=== PATIENT | male | born 1950 | race Caucasian/White ===

== ENCOUNTER 2020-10-23 13:32 | Outpatient (CLI) | payer OTHER, MEDICARE, SELFPAY | END 2020-10-23 13:33 | disposition home or self-care (01) | LOC: ANHCOVIDVC 13:32 | PROVIDERS: PCP Family Medicine Adolescent Medicine; Visit Provider Family Medicine Adolescent Medicine | DX: Z23 Encounter for immunization (principal) | CPT/HCPCS: 0001A; 91300 ==

== ENCOUNTER 2020-11-13 13:32 | Outpatient (CLI) | payer OTHER, MEDICARE, SELFPAY | END 2020-11-13 13:33 | disposition home or self-care (01) | LOC: ANHCOVIDVC 13:32 | PROVIDERS: PCP Family Medicine Adolescent Medicine; Visit Provider Family Medicine Adolescent Medicine | DX: Z23 Encounter for immunization (principal) | CPT/HCPCS: 0002A; 91300 ==

== ENCOUNTER → 2021-02-01 08:15 | Outpatient (CLI) | payer OTHER, SELFPAY ==
--- NOTE | ~2021-02-01 | CT_ITS ---
EXAMINATION: CT abdomen pelvis wo con EXAM DATE: 02/01/2021 08:42 INDICATION: Right low back, flank pain, kidney stone evaluation. Abnormal urinalysis. TECHNIQUE: Spiral CT of the abdomen and pelvis was performed without contrast. Axial, coronal and sag ittal images were reviewed. The dose-length product (DLP) for this examination was 951.65 mGy-cm. T he exposure was tailored according to patient size (auto mA exposure control), and iterative reconstr uction (ASIR) was used as additional dose reduction technique. There is no prior study for compariso n. FINDINGS: There is no nephrolithiasis or hydronephrosis. There is mild prostatomegaly. The bladder is unremarkable. The liver, spleen, adrenal glands and pancreas are unremarkable. Gallbladder is u nremarkable. No biliary obstruction. There is no retroperitoneal or pelvic lymphadenopathy. Small left inguinal fat-containing hernia. The appendix is normal. There is small sliding gastroesophageal hiatal hernia. There is expected am ount of colonic stool. No free intraperitoneal gas. The heart is normal in size. There are no pe ricardial or pleural effusions. Numerous punctate right lower lobe tree-in-bud distribution nodules, likely sequela from prior infectious process. Advanced lower lumbar facet arthropathy. There are no osteoblastic or osteolytic lesions identified. IMPRESSION: 1. No nephrolithiasis, hydronephrosis or acute intra-abdominal findings. 2. Mild prostatomegaly. 3. Small hiatal hernia. Reviewed, dictated and finalized at location B.
== END ==
PROVIDERS: PCP Family Medicine Adolescent Medicine; Visit Provider Physician Assistant
DX: M54.9 Dorsalgia, unspecified (principal); N40.0 Benign prostatic hyperplasia without lower urinary tract symptoms; K44.9 Diaphragmatic hernia without obstruction or gangrene
CPT/HCPCS: 74176

== ENCOUNTER → 2021-02-25 13:05 | Outpatient (CLI) | payer OTHER, SELFPAY ==
--- NOTE | ~2021-02-25 | MR_ITS ---
EXAMINATION: MR lumbar spine wo [facility] EXAM DATE: 02/25/2021 13:58 INDICATION: Lumbar radiculopathy. Low back, right leg and hip pain. TECHNIQUE: Multi-sequential, multiplanar MR images of the lumbar spine were obtained without contrast . Sagittal T1, T2, T2 fat saturation images. Axial T2 weighted images. There is no prior study for comparison. FINDINGS: There is 3 mm anterolisthesis L3 on L4, 4 mm anterolisthesis L4 on L5 with moderate loss of this disc height. Congenitally narrow L5-S1 disc height, a transitional segment. Mild disc disease a t the upper lumbar levels. The conus medullaris terminates at the T12-L1 level and has normal signal intensity and morphology. There are no suspicious marrow signal abnormalities. Level by level evaluation: T11-12: There is a mild to moderate diffuse disc bulge. Facet arthropathy: Mild. Neural foraminal stenosis: No stenosis. Central canal stenosis: Mild. T12-L1: There is a mild to moderate diffuse disc bulge. Facet arthropathy: Mild. Neural foraminal stenosis: No stenosis. Central canal stenosis: Minimal. L1-L2: There is a minimal diffuse disc bulge. Facet arthropathy: Mild to moderate. Neural foraminal stenosis: No stenosis. Central canal stenosis: No stenosis. L2-L3: There is a moderate diffuse disc bulge. Facet arthropathy: Moderate . Ligamentum flavum enlargement. Neural foraminal stenosis: Mild to moderate left, mild right. Central canal stenosis: Mild to moderate. L3-L4: There is a moderate to large diffuse disc bulge. Facet arthropathy: Severe. Neural foraminal stenosis: Moderate left, mild to moderate right. Central canal stenosis: Moderate to severe. L4-L5: There is a moderate diffuse disc bulge. Facet arthropathy: Severe right, moderate left. Neural foraminal stenosis: Moderate to severe right, mild to moderate left. Central canal stenosis: Moderate. L5-S1: There is a congenitally narrowed disc space. Facet arthropathy: Mild. Neural foraminal stenosis: Mild bilateral. Central canal stenosis: No stenosis. IMPRESSION: 1. Transitional L5 segment. 2. Grade 1 anterolisthesis L3 on L4 and L4 on L5. 3. L3-4 moderate to severe central canal stenosis. 4. L4-5 moderate to severe right neural foraminal stenosis. Reviewed, dictated and finalized at location A.
== END ==
PROVIDERS: PCP Family Medicine Adolescent Medicine; Visit Provider Nurse Practitioner Family
DX: M54.16 Radiculopathy, lumbar region (principal)
CPT/HCPCS: 72148

== ENCOUNTER → 2021-03-29 11:51 | Outpatient (CLI) | payer OTHER, SELFPAY ==
--- NOTE | ~2021-03-29 | US_ITS ---
EXAMINATION: US renal BI DATE: 03/29/2021 12:10 INDICATION: Abnormal results of kidney function tests. TECHNIQUE: Multiple ultrasound grayscale images of the kidneys were obtained. COMPARISON: None. FINDINGS: The right kidney measures 10.1 x 5.4 x 4.7 cm. The left kidney measures 10.9 x 6.1 x 5.3 cm. The kidn eys demonstrate normal parenchymal echogenicity. There is a 1.1 cm cyst in right kidney. There is no hydronephrosis. The bladder is normal. IMPRESSION: 1. Normal kidney sizes. No hydronephrosis. Reviewed, dictated and finalized at location A.
== END ==
PROVIDERS: PCP Family Medicine Adolescent Medicine; Visit Provider Internal Medicine Nephrology
DX: R94.4 Abnormal results of kidney function studies (principal)
CPT/HCPCS: 76775

== ENCOUNTER 2021-04-10 07:28 | Outpatient (CLI) | payer OTHER, SELFPAY ==
[2021-04-05 12:43] VITALS: BMI 32.8
[2021-04-10] VITALS (9 sets, daily range): BP systolic 110–132; BP diastolic 73–79; PULSE 62–71; RESP 16–18; TEMP 36.5; O2SAT 97–99
--- NOTE | ~2021-04-10 | US_ITS ---
EXAMINATION: US biopsy renal DATE: 04/10/2021 09:59 INDICATION: Acute kidney failure. TECHNIQUE: The procedure including the risks, benefits, and alternatives was discussed with the patie nt. Risks discussed included bleeding and infection. The patient understood the risks and agreed to p roceed. A timeout was performed to verify the patient's name, date of , and procedure to be p erformed. The skin overlying the left kidney was prepped and draped in usual sterile fashion. Anest hetic was administered with 1% lidocaine subcutaneously. An 18 gauge core biopsy needle was then use d to obtain 5 core biopsy specimens under continuous sonographic guidance. The entry site was cleaned and dressed. There were no immediate complications. FINDINGS: Ultrasound images demonstrate the needle in the kidney. IMPRESSION: 1. Ultrasound-guided random left kidney core needle biopsy. Reviewed, dictated and finalized at location A.
[2021-04-10 07:58] LABS: Hematocrit 35.2 % (42.0-52.0); Hemoglobin 11.5 g/dL (14.0-18.0); Mean Corpuscular HGB Conc 32.7 g/dl (32-36); Mean Corpuscular Hemoglobin 28.9 pg (26-34); Mean Corpuscular Volume 88.4 fl (80-100); Mean Platelet Volume 9.4 fl (7.4-10.4); Platelet Count Result 345 k/mm3 (150-375); Red Blood Count 3.98 M/mm3 (4.6-6.20); Red Cell Distribution Width 13.3 % (11.5-14.5); White Blood Count 8.5 K/mm3 (4.5-10.0)
[2021-04-10 08:05] LABS: Prothrombin Time 12.9 Seconds (11.1-14.7)
== END 2021-04-10 13:55 | disposition home or self-care (01) ==
PROVIDERS: Radiology Diagnostic Radiology; PCP Family Medicine Adolescent Medicine; Visit Provider Internal Medicine Nephrology
DX: N17.9 Acute kidney failure, unspecified (principal)
CPT/HCPCS: 36415; 50200; 76942; 85027; 85610; 88300; 88305; 88313; 88329; 88346; 88348; 88350

== ENCOUNTER 2021-05-21 02:30 | Day surgery (SDC) | payer OTHER, SELFPAY ==
[2021-05-09 14:35] VITALS: BMI 30.6
[2021-05-21 09:46] VITALS: BP 134/71; PULSE 65; RESP 18; TEMP 36.6; O2SAT 99
[2021-05-21] MEDS: SODIUM CHLORIDE 0.9% IV 500 ML 10 ML IV CONT (10:06)
--- NOTE | 2021-05-21 10:20 | P.PNAN_ITS ---
Anes - Initial Pre Proc Eval Procedure: Operation Date: 05/21/21 10:30 Proposed Procedures p Screening Colonoscopy - Jc Medina MD Date/Time: 05/21/21 10:20 Surgeon: Jc Medina MD Pre Op Diagnosis: neoplasm screening Patient Data Age: 71 Gender: M Height: 1.7 m Weight: 89.7 kg Last Vital Signs Temp 97.8 F 05/21/21 09:46 Pulse 65 05/21/21 09:46 Resp 18 05/21/21 09:46 BP 134/71 05/21/21 09:46 Pulse Ox 99 05/21/21 09:46 Allergies Allergy/AdvReac Type Severity Reaction Status Date / Time gabapentin AdvReac Mild Dizziness Verified 05/21/21 09:44 prednisone AdvReac Mild Dizziness Verified 05/21/21 09:44 propoxyphene AdvReac Mild Dizziness Verified 05/21/21 09:44 Home Medications Medication Instructions Recorded Confirmed Type atorvastatin 5 mg PO DAILY 04/05/21 05/09/21 History verapamil 240 mg PO DAILY 04/05/21 05/09/21 History omega 3-xzp-[id number]-fish oil [Fish Oil] 1 cap PO DAILY 05/09/21 05/09/21 History Patient hx anesthesia problems: none Family hx anesthesia problems: none Results Review: All pre-operative results and documents have been reviewed as part of the pre-operative evaluation. [facility] Past Medical History Medical History (Updated 05/21/21 @ 10:19 by Dhaval Schreiber MD) ESRD needing dialysis Hyperlipidemia Hypertension Social History Social History Smoking status: Never smoker Living arrangements: with family Spiritual care concerns: No Anes - Eval Final PreProcedure Day of Procedure 05/21/21 10:20 Patient weight: obese Heart: regular rate and rhythm Lungs: clear to auscultation Airway: Mallampati scale class II Neurological: alert and oriented Last oral intake: >/= 8 hours ASA classification: III Emergent: no Anesthetic plan: proceed Anesthesia type and monitoring: general GIVS and standard monitoring Results Review: All pre-operative results and documents have been reviewed as part of the pre-operative evaluation. Informed Consent: The patient's anesthetic plan and its attendant risks and benefits were discussed with the patient/family/POA. Questions were solicited and answers provided to the satisfaction of the patient/family/POA.
--- NOTE | 2021-05-21 10:40 | PM.HPGS ---
History of Present Illness History of Present Illness Consent: Risks, benefits, and alternatives have been discussed and questions answered. Patient agrees to proceed with procedure. Chief complaint: neoplasm screening Narrative: Mundo Gonsalves is a 71 year old male with colon polyps ~6 years ago. Review of Systems Constitutional: Constitutional: Denies headache(s) and Denies weakness Eyes: Eyes: Denies blurry vision ENT: Reports Normal hearing present, Denies headache(s) and Denies neck pain Cardiovascular: Cardiovascular: Denies chest pain and Denies dyspnea Respiratory: Respiratory: Denies dyspnea Gastrointestinal: Gastrointestinal: Reports no additional gastrointestinal complaints Genitourinary: Genitourinary: Denies dysuria Musculoskeletal: Musculoskeletal: Denies neck pain Integumentary/Breasts: Skin/Breast: Denies dry skin Neurologic: Reports Normal hearing present, Denies headache(s) and Denies weakness Psychiatric: Psychiatric: Denies anxiety Endocrine: Endocrine: Denies change in body appearance Hematologic/Lymphatic: Hematologic/Lymphatic: Denies easy bleeding Allergic/Immunologic: Allergic/Immunologic: Denies urticaria PMFSH Past Medical History Medical History (Updated 05/21/21 @ 10:40 by Jc Medina MD) Colon polyp ESRD needing dialysis Hyperlipidemia Hypertension Social History Social History Smoking status: Never smoker Living arrangements: with family Spiritual care concerns: No Meds Home Medications and Allergies Home Medications Medication Instructions Recorded Confirmed Type atorvastatin 5 mg PO DAILY 04/05/21 05/09/21 History verapamil 240 mg PO DAILY 04/05/21 05/09/21 History omega 6-yjr-pgw-fish oil [Fish Oil] 1 cap PO DAILY 05/09/21 05/09/21 History Allergies Allergy/AdvReac Type Severity Reaction Status Date / Time gabapentin AdvReac Mild Dizziness Verified 05/21/21 09:44 prednisone AdvReac Mild Dizziness Verified 05/21/21 09:44 propoxyphene AdvReac Mild Dizziness Verified 05/21/21 09:44 Vital Signs Vital Signs - 24 hr 05/21/21 09:46 Temperature 97.8 F Pulse Rate 65 Respiratory Rate 18 Blood Pressure 134/71 Pulse Oximetry 99 Exam Const: General: comfortable and no acute distress HENMT: General nose exam: Normal nares present Eyes: General: appearance normal, both eyes and all related structures Neck: Neck: no JVD Resp: Auscultation: clear to auscultation bilaterally Cardio: Rate: regular rate Rhythm: regular rhythm GI: Inspection: non-distended GI Palp: Yes Soft to palpation Skin: General skin exam: normal color Neuro: General: gait normal Speech: normal speech Extrem: General: normal to inspection Psych: Mental Status: mental status grossly normal Assessment and Plan Assessment and plan (1) Colon polyp: Code(s): K63.5 - Polyp of colon Status: Acute Assessment and Plan: colonoscopy
[2021-05-21 11:06] VITALS: BP 114/64; PULSE 66; RESP 17; O2SAT 97
[2021-05-21 11:16] VITALS: BP 118/67; PULSE 63; RESP 18; O2SAT 99
[2021-05-21 11:26] VITALS: BP 134/73; PULSE 65; RESP 24; O2SAT 100
== END 2021-05-21 11:40 | disposition home or self-care (01) ==
PROVIDERS: PCP Family Medicine Adolescent Medicine; Visit Provider Internal Medicine Gastroenterology
PROC: 0DJD8ZZ Inspection of Lower Intestinal Tract, Via Natural or Artificial Opening Endoscopic (ICD-10-PCS; CPT 45378; principal; 2021-05-21 10:30)
DX: Z12.11 Encounter for screening for malignant neoplasm of colon (principal); K63.5 Polyp of colon; K64.8 Other hemorrhoids; I12.0 Hypertensive chronic kidney disease with stage 5 chronic kidney disease or end stage renal disease; N18.6 End stage renal disease; Z99.2 Dependence on renal dialysis; E78.5 Hyperlipidemia, unspecified; E66.9 Obesity, unspecified; Z68.31 Body mass index [BMI] 31.0-31.9, adult
CPT/HCPCS: 45385; 88305; J2704; J7040

== ENCOUNTER 2021-06-18 07:28 | Outpatient (CLI) | payer OTHER, SELFPAY ==
--- NOTE | ~2021-06-18 | NM_ITS ---
EXAMINATION: NM bone scan whole body DATE: 06/18/2021 12:34 INDICATION: Hypercalcemia TECHNIQUE: 25.9 mCi Tc-99m HDP was administered intravenously. Delayed whole-body scintigrams were o btained. COMPARISON: There are no relevant imaging studies at our institution. FINDINGS: Likely degenerative joint centered uptake moderate at the radial aspect of the bilateral bases of the thumbs and more subtly at the medial compartments of the bilateral knees and at the left ankle pain. Prominent asymmetric articular versus periarticular uptake at the right elbow. Shielded focus of act ivity due to extravasation at the site of the injection at the dorsum of the right hand. No other saul picious foci of abnormal bone uptake or photopenic defects. IMPRESSION: 1. Atypical prominently asymmetric articular or more likely periarticular uptake at the right elbow. This could be due to degenerative or inflammatory arthritis or potentially due to dystrophic soft tis brandan calcific location such as tumoral calcinosis. Malignant lesion cannot be absolutely excluded alth ough location more distally in the extremities is also unusual. Correlate with plain radiographs. Reviewed, dictated and finalized at location A. IMPRESSION: 1. Atypical prominently asymmetric articular or more likely periarticular uptak e at the right elbow. This could be due to degenerative or inflammatory arthrit is or potentially due to dystrophic soft tissue calcific location such as tumor al calcinosis. Malignant lesion cannot be absolutely excluded although location more distally in the extremities is also unusual. Correlate with plain radiogr aphs.
== END 2021-06-18 07:29 | disposition home or self-care (01) ==
PROVIDERS: PCP Family Medicine Adolescent Medicine; Visit Provider Internal Medicine Nephrology
DX: E83.52 Hypercalcemia (principal)
CPT/HCPCS: 78306; A9561

== ENCOUNTER → 2021-06-27 14:16 | Outpatient (CLI) | payer OTHER, SELFPAY ==
--- NOTE | ~2021-06-27 | XR_ITS ---
XR elbow RT min 3V 06/27/2021 14:39 Indication: Right elbow pain Procedure: 4 views right elbow Comparison: No prior studies for comparison. Findings: There is advanced osteoarthritis of the right elbow with loose bodies adjacent to the joint space. Prominent marginal osteophytes. No acute fracture, subluxation or dislocation. No significant joint effusion. Impression: 1: Advanced osteoarthritis of the right elbow with multiple loose bodies adjacent to the joint space. Reviewed, dictated and finalized at location A. INE ASSISTANT Impression: 1: Advanced osteoarthritis of the right elbow with multiple loose bodies adjace nt to the joint space.
== END ==
PROVIDERS: PCP Family Medicine Adolescent Medicine; Visit Provider Internal Medicine Nephrology
DX: M19.021 Primary osteoarthritis, right elbow (principal)
CPT/HCPCS: 73080

== ENCOUNTER 2023-10-13 14:10 | Outpatient (CLI) | payer OTHER, SELFPAY ==
--- NOTE | ~2023-10-13 | CT_ITS ---
Non-contrast CT scan of the Abdomen and Pelvis Clinical indication: Left renal neoplasm Technique: 2.5 mm axial scans were obtained through the abdomen and pelvis without intravenous or or al contrast. Dose reduction technique was used on this scan by utilizing automated exposure control a nd iterative reconstruction technique. The dose-length product (DLP) was 592.67 mGy-cm. COMPARISON: 02/01/2021 Findings: Images through the lung bases reveal no abnormalities. There is no evidence of renal or ureteral calculi. The kidneys and the ureters are nondilated. 9 mm l eft upper pole exophytic renal lesion present medially (axial image 62). There is an amorphous, proba ble fluid attenuation lesion medial to the left kidney (axial image 84 for example), nonspecific. The liver, spleen, pancreas, gallbladder, and adrenals appear normal. There is no aortic aneurysm. There is no evidence of bowel obstruction. Images through the pelvis were performed. There is no evidence of ascites or lymphadenopathy. Urinary bladder unremarkable. Prostate gland enlarged. Impression: 9 mm indeterminate left renal lesion, as detailed above. If there is concern for renal neoplasm, then pre and postcontrast MR recommended for further evaluation. Irregular/amorphous probable fluid attenuation lesion medial to left kidney. This is nonspecific. An ossific considerations could include lymphocele or other cystic lesion. Appearance is most compatible with benign finding, increased in size since 02/01/2021. Reviewed, dictated and finalized at [facility]. ALMIC TECH Impression: 9 mm indeterminate left renal lesion, as detailed above. If there is concern fo r renal neoplasm, then pre and postcontrast MR recommended for further evaluati on. Irregular/amorphous probable fluid attenuation lesion medial to left kidney. Th is is nonspecific. An ossific considerations could include lymphocele or other cystic lesion. Appearance is most compatible with benign finding, increased in size since 02/01/2021.
== END 2023-10-13 14:11 | disposition home or self-care (01) ==
PROVIDERS: PCP Family Medicine Adolescent Medicine; Visit Provider Urology
DX: C64.2 Malignant neoplasm of left kidney, except renal pelvis (principal); N28.89 Other specified disorders of kidney and ureter
CPT/HCPCS: 74176

== ENCOUNTER 2023-11-19 13:14 | Outpatient (CLI) | payer OTHER, SELFPAY ==
--- NOTE | ~2023-11-19 | MR_ITS ---
EXAMINATION: MR abdomen wo/w con DATE: 11/19/2023 14:37 INDICATION: Left kidney mass. TECHNIQUE: Magnetic resonance imaging (MRI) of the abdomen was performed without and with 16 mL Multi Carolyn intravenous contrast. COMPARISON: CT abdomen and pelvis 10/13/2023 FINDINGS: The liver, gallbladder, spleen, and adrenal glands are normal. The pancreatic duct is dilated to 5 mm in the tail of the pancreas. There is a 14 mm mass at the junction of the body and tail of the pancr eas characterized by heterogeneous signal intensity and focal volume loss of the pancreas. Pancreas d ivisum is noted. There are cysts and hemorrhagic cysts in the kidneys measuring up to 14 mm in the le ft. There are no pathologically enlarged lymph nodes. There is no free intraperitoneal fluid. There i s a small sliding hiatal hernia. There are no dilated loops of bowel. IMPRESSION: 1. 14 mm pancreatic mass with upstream pancreatic duct dilatation. This finding is suspicious for artemio yun adenocarcinoma or chronic pancreatitis. 2. Benign cysts in the kidneys. Reviewed, dictated and finalized at location A. IMPRESSION: 1. 14 mm pancreatic mass with upstream pancreatic duct dilatation. This finding is suspicious for primary adenocarcinoma or chronic pancreatitis. 2. Benign cysts in the kidneys.
== END 2023-11-19 13:15 ==
LOC: MICIMG 13:15
PROVIDERS: PCP Urology; Visit Provider Urology
DX: N28.89 Other specified disorders of kidney and ureter (principal); N28.1 Cyst of kidney, acquired
CPT/HCPCS: 74183; A9577

== ENCOUNTER 2024-11-08 08:44 | Outpatient (CLI) | payer OTHER, SELFPAY ==
--- NOTE | ~2024-11-08 | CT_ITS ---
EXAMINATION: CT abdomen pelvis wo con DATE: 11/08/2024 09:29 INDICATION: Renal mass. TECHNIQUE: Computed tomography (CT) of the abdomen and pelvis was performed without intravenous contr ast. Automated exposure control and iterative reconstruction technique were employed. The dose-length product was 744.37 mGy-cm. COMPARISON: CT abdomen and pelvis 10/13/2023, abdomen MRI 11/19/2023 FINDINGS: The visualized portions of the lung bases demonstrate mild chronic lung disease. No pleural effusion. The heart size is normal. No pericardial effusion. The liver, gallbladder, and spleen are normal. There is a stent in the pancreatic duct. The adrenal glands are normal. There are cysts in th e kidneys measuring up to 12 mm on the right. Again seen are hemorrhagic cysts in the left kidney reba suring up to 11 mm. The prostate is moderately enlarged. There are no dilated loops of bowel. There a re no pathologically enlarged lymph nodes. There is no free intraperitoneal fluid. There is moderate lumbar spondylosis. IMPRESSION: 1. Benign cysts in the kidneys. Reviewed, dictated and finalized at location A.
[2024-11-08 09:01] LABS: Estimated Glomerular Filt Rate 9
== END 2024-11-08 08:45 | disposition home or self-care (01) ==
LOC: MICIMG 08:45
PROVIDERS: PCP Family Medicine Adolescent Medicine; Visit Provider Urology
DX: N28.89 Other specified disorders of kidney and ureter (principal); N28.1 Cyst of kidney, acquired
CPT/HCPCS: 74176